=== PATIENT | male | born 1955 | race Caucasian/White ===

== ENCOUNTER 2017-03-15 08:17 | Day surgery (SDC) | payer BC ==
[2017-03-14 17:56] LABS: HEMOGLOBIN 15.9 g/dL (13.6-17.8)
[2017-03-14 18:05] LABS: BUN (BLOOD UREA NITROGEN) 13 MG/DL (6-23); CALCIUM, SERUM 8.5 MG/DL (8.5-10.4); CHLORIDE, SERUM 103 MMOL/L (96-112); CO2 (CARBON DIOXIDE) 27 MMOL/L (24-34); CREATININE 0.81 MG/DL (0.70-1.30); GFR AFRICAN AMERICAN 113 ML/MIN (>=60); GFR NON AFRICAN AMERICAN 97 ML/MIN (>=60); GLUCOSE, SERUM 75 MG/DL (60-99); SODIUM, SERUM 139 MMOL/L (135-148)
[2017-03-14 18:06] LABS: POTASSIUM, SERUM 3.1 MMOL/L (3.5-5.3)
[~2017-03-15] VITALS: Ht 170.2 cm; Wt 83.9 kg
--- NOTE | ~2017-03-15 | OP ---
Record Of Operation [facility] [address] [place]. [address] NAME: SIGIFREDO CARLSON : 59 STATUS : REG [facility] [place] PAT#: [id number] AGE: 61 ADM/REG DATE : 03/15/17 MR#: [id number] REPORT SERV DATE: 03/15/17 DICTATED BY: VIPUL LOPEZ DATE: 03/15/17 REPORT STATUS : Draft TRANSCRIBED BY: MODL DATE: 03/15/17 DATE OF PROCEDURE: 03/15/2017 PREOPERATIVE DIAGNOSIS: Inflamed epidermal inclusion cyst, upper back. POSTOPERATIVE DIAGNOSIS: Inflamed epidermal inclusion cyst, upper back. PROCEDURE: Excision, inflamed epidermal inclusion cyst, upper back. DESCRIPTION OF PROCEDURE: The patient was brought to the operating suite, placed in supine position, and underwent general endotracheal anesthesia. He was then rolled into the right lateral decubitus position and the skin of the back was scrubbed, prepped, and draped in usual sterile fashion. 0.5% Marcaine with epinephrine was utilized as supplemental local anesthesia to form an ellipse surrounding the inflamed epidermal inclusion cyst. The dissection was deepened with a knife through the skin and subcutaneous tissue and then using cautery. The cyst and overlying ellipse of skin were completely excised. The wound was irrigated and hemostasis was assured. Subcutaneous tissue was closed with multiple interrupted 2-0 Vicryl sutures, running subcuticular stitch 4-0 Vicryl for the skin. Dermabond skin adhesive placed. The patient tolerated the procedure well and was returned to PACU in stable condition. At the termination of the procedure, sponge, needle, lap, and instrument counts were correct x3. ESTIMATED BLOOD LOSS: Less than 15 mL. BEVERLEY/LEEROY Vipul Lopez M.D. / [id number] CC: Flaca Solares M.D.
[~2017-03-15 08:17] MED LIST: ALLEGRA180 PO; AT25 PO; DIOVAN HCT160 MG/25 PO; FLOMAX4 PO; MULTIPLE VIT PO; MULTIVITAMI1 PO; NAP500 PO; OSTEO BI-FLX PO; PRILO PO; PROSCAR5 PO; SINGULAIR1 PO; ZANTAC150 MG PO
== END 2017-03-15 23:59 | disposition home or self-care (01) ==
LOC: MSC 08:17
PROVIDERS: Specialist
PROC: 0WBK0ZZ Excision of Upper Back, Open Approach (ICD-10-PCS; 2017-03-15)
PROC: 0JQ70ZZ Repair Back Subcutaneous Tissue and Fascia, Open Approach (ICD-10-PCS; principal; 2017-03-15 10:00)
DX: L72.0 Epidermal cyst (principal); I10 Essential (primary) hypertension; K21.9 Gastro-esophageal reflux disease without esophagitis; J30.2 Other seasonal allergic rhinitis; N40.0 Benign prostatic hyperplasia without lower urinary tract symptoms; L40.9 Psoriasis, unspecified; Z79.899 Other long term (current) drug therapy; Z88.0 Allergy status to penicillin; Z98.890 Other specified postprocedural states
CPT/HCPCS: 80048; 85014; 85018; 88304; 93005; A9270-GY; J0690; J2250; J2405; J2710; J3010